=== PATIENT | female | born 1930 | race African-American/Black ===

== ENCOUNTER 2017-08-30 09:14 | Emergency (ER) | payer MEDICARE ==
[2017-08-30 10:47] LABS: #Lymphocytes 1.1 thou/uL (1.20-3.40); #Monocytes 0.3 thou/uL (0.11-0.59); %Basophils 1.3 % (0.0-1.0); %Eosinophils 1.8 % (0.0-10.0); %Lymphocytes 43.4 % (21.0-51.0); %Monocytes 11.7 % (0.0-10.0); %Neutrophils 41.8 % (42.0-75.0); Mean Corpuscular HGB CONC 34.8 g/dL (32.0-36.0); Mean Corpuscular Hemoglobin 31.4 pg (27.0-31.0); Mean Corpuscular Volume 90.2 fl (81.0-99.0); Mean Platelet Volume 9.7 fL (7.4-10.4); PLT Morphology Comment Appears Decreased; Platelet Count 109 thou/uL (130-400); RBC Morphology Normal; Red Blood Cell (RBC) Count 4.78 mill/uL (4.20-5.40); White Blood Cell (WBC) Count 2.5 thou/uL (4.8-10.8)
[2017-08-30 11:34] LABS: Bilirubin Negative (Negative); Blood, Urine Negative (Negative); Clarity CLEAR (Clear); Glucose, Urine (Dipstick) Negative (Negative); Leukocyte Negative (Negative); Nitrite Negative (Negative); Protein, Urine (Dipstick) 30 mg/dL (Neg-Trace); Specific Gravity, Urine 1.022 (1.002-1.036); Urobilinogen 0.2 mg/dL (0.2-1.0)
[2017-08-30 11:34] LABS: ALT (SGPT) 9 U/L (8-55); AST (SGOT) 14 U/L (5-34); Albumin 4.1 g/dL (3.4-4.8); Alkaline Phosphatase 54 U/L (40-150); Anion Gap 14 mmol/L (10-20); BUN (Urea Nitrogen) 18 mg/dL (9.8-20.1); Calc. Creatinine Clearance 0 mL/min (70-130); Calcium 9.5 mg/dL (7.8-10.44); Carbon Dioxide 22 mmol/L (23-31); Chloride 94 mmol/L (98-107); Estimated GFR-MDRD 64; Globulin 3.2 g/dL (2.4-3.5); Glucose 105 mg/dL (83-110); Potassium 3.8 mmol/L (3.5-5.1); Protein, Total 7.3 g/dL (6.0-8.3); Sodium 126 mmol/L (136-145)
[2017-08-30 11:35] LABS: Bacteria/HPF None Seen HPF (None Seen); Hyaline Casts/LPF 0-3 HYALINE CAST LPF (0-3 Hyaline); Pathc Cast-AUWi Flag 0.13 (0-2.49); Squamous Epithelial 0-3 HPF (0-3); WBC/HPF 0-3 HPF (0-3)
[2017-08-30 11:57] LABS: RBC/HPF 0-3 HPF (0-3)
--- NOTE | 2017-09-03 12:23 | EKG ---
Test Reason : Blood Pressure : / mmHG Vent. Rate : 062 BPM Atrial Rate : 062 BPM P-R Int : 186 ms QRS Dur : 080 ms QT Int : 428 ms P-R-T Axes : 017 034 075 degrees QTc Int : 434 ms Sinus rhythm with occasional Premature ventricular complexes Otherwise normal ECG Confirmed by ARIELLE LAGUERRE M.D. ([id number]), telegraph editor PAVAN FERRARI ([id number]) on 09/03/2017 12:23:09 PM Referred By: Confirmed By:ARIELLE LAGUERRE M.D.
== END 2017-08-30 12:29 | disposition home or self-care (01) ==
LOC: ERS 09:14
DX: K92.2 Gastrointestinal hemorrhage, unspecified (principal); I10 Essential (primary) hypertension
CPT/HCPCS: 36415; 80053; 81003; 81015; 82274; 85025; 86850; 86900; 86901; 93005